=== PATIENT | male | born 1945 | race Caucasian/White ===

== ENCOUNTER 2019-05-11 15:45 | Observation (INO) ==
[2019-05-11 16:39] LABS: Basophils % 0.4 %; Eosinophils # 0.2 K/mcL (0.0-0.6); Eosinophils % 2.3 %; Hematocrit 37.7 % (37.5-50.1); Immature Granulocytes % 0.9 % (0-4); Lymphocytes # 0.5 K/mcL (0.6-4.6); Lymphocytes % 5.5 %; Mean Corpuscular HGB Conc 34.5 g/dL (31.6-35.5); Mean Corpuscular Hemoglobin 33.3 pg (28.0-33.3); Mean Corpuscular Volume 96.7 fL (83.0-100.0); Mean Platelet Volume 12.2 fL (9.4-12.4); Monocytes # 0.7 K/mcL (0.0-1.3); Neutrophils # 8.1 K/mcL (1.6-8.9); Platelet Count 146 K/mcL (140-400); Red Cell Distribution Width 13.4 % (11.5-14.5); Segmented Neutrophils % 83.9 %; White Blood Count 9.6 K/mcL (4.3-11.1)
[2019-05-11 18:02] LABS: Bilirubin,Urine Large (Negative); Blood,Urine Negative (Negative); Clarity,Urine Clear (Clear); Color,Urine Orange (Yellow); Glucose,Urine (UA) Normal (Normal); Ketones,Urine Trace mg/dL (Negative); Leukocyte Esterase,Urine Small (Negative); Nitrite,Urine Positive (Negative); PH,Urine 5.5 pH Units (5.0-8.0); Protein,Urine 30 mg/dL (Neg-Trace); Specific Gravity,Urine 1.029 (1.010-1.025); Urobilinogen,Urine >=8.0 mg/dL (Normal)
[2019-05-11 18:05] LABS: Alanine Aminotransferase 105 Units/L (7-52); Albumin 3.7 g/dL (3.5-5.7); Albumin/Globulin Ratio 1.3 (1.1-2.2); Alkaline Phosphatase 84 Units/L (34-104); Aspartate Amino Transferase 147 Units/L (13-39); BUN/Creatinine Ratio 27 (6-26); Bilirubin,Total 2.3 mg/dL (0.3-1.0); Blood Urea Nitrogen 32 mg/dL (8-23); Calcium 9.4 mg/dL (8.6-10.3); Carbon Dioxide 21 mEq/L (23-29); Chloride 99 mEq/L (98-107); Globulin 2.9 g/dL (2.4-3.5); Glucose 101 mg/dL (70-105); Osmolality,Calculated 285 (280-300); Potassium 4.4 mEq/L (3.5-5.1); Sodium 134 mEq/L (136-145); Total Protein 6.6 g/dL (6.4-8.9); Troponin I 0.03 ng/mL (< 0.04); eGFR For African Americans > 60 (> 60); eGFR For Non-African Americans 59 (> 60)
[2019-05-11 18:05] LABS: Bacteria,Urine None Seen per hpf (None-Few); Squamous Epithelial Cell,Urine Many per lpf (None-Few); WBC,Urine 15-30 per hpf (0-3)
[2019-05-11 18:11] LABS: Hyaline Casts,Urine Few per lpf (None-Few); RBC,Urine 0-3 per hpf (0-3)
[2019-05-11 18:15] LABS: Thyroid Stimulating Hormone 3.487 mcIU/mL (0.340-5.600)
[2019-05-11] MEDS ORDERED: Isovue-370 500 ML BOTTLE IVP ONE (18:38)
[2019-05-11] MEDS ORDERED: 0.9 % Sodium Chloride 500 ML IVC ONE (19:16)
[2019-05-11 19:34] LABS: Creatine Kinase 125 Units/L (30-223)
[2019-05-11] MEDS ORDERED: cefTRIAXone 1,000 MG in Water for inj. (sterile) 10 ML IVP ONE (20:44)
[2019-05-11] MEDS ORDERED: Naloxone 0.4 MG/ML INJ IVP PRN (22:03)
[2019-05-11] MEDS ORDERED: Nitroglycerin 0.4 MG TAB.SUBL SL PRN (22:05)
[2019-05-11] MEDS ORDERED: Ipratropium/Albuterol Neb 3 ML IH PRN (22:05)
[2019-05-12] MEDS ORDERED: Gadolinium Contrast Agent (WT Based) IV PRN (01:53)
[2019-05-12 05:28] LABS: Basophils % 0.5 %; Eosinophils # 0.3 K/mcL (0.0-0.6); Eosinophils % 3.1 %; Hemoglobin 12.2 g/dL (12.9-16.9); Immature Granulocytes % 1.2 % (0-4); Lymphocytes # 0.4 K/mcL (0.6-4.6); Lymphocytes % 5.2 %; Mean Corpuscular Hemoglobin 33.3 pg (28.0-33.3); Mean Corpuscular Volume 101.1 fL (83.0-100.0); Mean Platelet Volume 11.6 fL (9.4-12.4); Monocytes # 0.6 K/mcL (0.0-1.3); Monocytes % 7.2 %; Platelet Count 118 K/mcL (140-400); Red Blood Count 3.66 M/mcL (4.19-5.50); Red Cell Distribution Width 13.4 % (11.5-14.5); Segmented Neutrophils % 82.8 %; White Blood Count 8.5 K/mcL (4.3-11.1)
[2019-05-12 05:50] LABS: BUN/Creatinine Ratio 30 (6-26); Blood Urea Nitrogen 31 mg/dL (8-23); Carbon Dioxide 23 mEq/L (23-29); Chloride 100 mEq/L (98-107); Glucose 101 mg/dL (70-105); Osmolality,Calculated 289 (280-300); Potassium 4.3 mEq/L (3.5-5.1); Sodium 136 mEq/L (136-145); eGFR For African Americans > 60 (> 60); eGFR For Non-African Americans > 60 (> 60)
[2019-05-12] MEDS: *HR* Heparin 5,000 UNIT/ML VIAL SQ SCH ×2 (06:23→14:31)
[2019-05-12 06:37] LABS: Hepatitis B Surface Antigen Nonreactive (Nonreactive)
[2019-05-12 07:06] LABS: Hepatitis C Virus Antibody Nonreactive (Nonreactive)
[2019-05-12 07:07] LABS: Hepatitis B Core IgM Nonreactive (Nonreactive)
[2019-05-12 07:08] LABS: Hepatitis A Antibody IgM Nonreactive (Nonreactive)
[2019-05-12] MEDS: carvediloL 25 MG TABLET PO SCH ×2 (08:07→15:41)
[2019-05-12] MEDS: Spironolactone 25 MG TABLET PO SCH (08:07)
[2019-05-12] MEDS: Aspirin 81 MG TAB.CHEW PO SCH (09:31)
[2019-05-12 09:43] LABS: Alanine Aminotransferase 93 Units/L (7-52); Albumin 3.5 g/dL (3.5-5.7); Albumin/Globulin Ratio 1.3 (1.1-2.2); Alkaline Phosphatase 80 Units/L (34-104); Aspartate Amino Transferase 131 Units/L (13-39); Bilirubin,Direct 1.5 mg/dL (0.0-0.2); Bilirubin,Indirect 0.6 mg/dL (0.0-1.0); Bilirubin,Total 2.1 mg/dL (0.3-1.0); Globulin 2.6 g/dL (2.4-3.5); Total Protein 6.1 g/dL (6.4-8.9)
[2019-05-12] MEDS: Tiotropium 18 MCG inhalation IH SCH (10:44)
[2019-05-12] MEDS: Budesonide/Formoterol 160/4.5 1 PUFF INH IH SCH ×2 (10:44→20:16)
[2019-05-13] MEDS: *HR* Heparin 5,000 UNIT/ML VIAL SQ SCH ×4 (02:47→20:38)
[2019-05-13 05:24] LABS: Hematocrit 36.6 % (37.5-50.1); Hemoglobin 12.6 g/dL (12.9-16.9); Mean Corpuscular HGB Conc 34.4 g/dL (31.6-35.5); Mean Corpuscular Hemoglobin 33.5 pg (28.0-33.3); Mean Corpuscular Volume 97.3 fL (83.0-100.0); Mean Platelet Volume 11.8 fL (9.4-12.4); Platelet Count 128 K/mcL (140-400); Red Blood Count 3.76 M/mcL (4.19-5.50); Red Cell Distribution Width 13.6 % (11.5-14.5); White Blood Count 8.8 K/mcL (4.3-11.1)
[2019-05-13 05:44] LABS: Alanine Aminotransferase 103 Units/L (7-52); Albumin 3.5 g/dL (3.5-5.7); Albumin/Globulin Ratio 1.3 (1.1-2.2); Alkaline Phosphatase 86 Units/L (34-104); Aspartate Amino Transferase 163 Units/L (13-39); BUN/Creatinine Ratio 31 (6-26); Bilirubin,Total 2.4 mg/dL (0.3-1.0); Blood Urea Nitrogen 29 mg/dL (8-23); Calcium 9.2 mg/dL (8.6-10.3); Carbon Dioxide 25 mEq/L (23-29); Chloride 98 mEq/L (98-107); Globulin 2.6 g/dL (2.4-3.5); Glucose 97 mg/dL (70-105); Osmolality,Calculated 286 (280-300); Potassium 4.4 mEq/L (3.5-5.1); Sodium 135 mEq/L (136-145); Total Protein 6.1 g/dL (6.4-8.9); eGFR For African Americans > 60 (> 60); eGFR For Non-African Americans > 60 (> 60)
[2019-05-13] MEDS: Tiotropium 18 MCG inhalation IH SCH (07:16)
[2019-05-13] MEDS: Budesonide/Formoterol 160/4.5 1 PUFF INH IH SCH ×2 (07:16→22:40)
[2019-05-13] MEDS: Spironolactone 25 MG TABLET PO SCH (09:16)
[2019-05-13] MEDS: carvediloL 25 MG TABLET PO SCH ×2 (09:16→16:38)
[2019-05-13] MEDS: Aspirin 81 MG TAB.CHEW PO SCH (09:16)
[2019-05-13] MEDS ORDERED: Isovue-370 500 ML BOTTLE IVP ONE (13:07)
[2019-05-13] MEDS ORDERED: Gadolinium Contrast Agent (WT Based) IV PRN (15:48)
[2019-05-13] MEDS: levoFLOXacin 750 MG TABLET PO SCH (16:37)
[2019-05-13 16:57] LABS: % Iron Saturation 27 % (20-55); Iron 86 mcg/dL (65-175); Transferrin 224 mg/dL (203-362)
[2019-05-13 17:20] LABS: Folate 5.8 ng/mL (3.0-16.0)
[2019-05-13] MEDS ORDERED: Ipratropium/Albuterol Neb 3 ML IH SCH (18:00)
[2019-05-13] MEDS: Ipratropium/Albuterol Neb 3 ML IH SCH ×2 (19:43→22:40)
[2019-05-14] MEDS: Ipratropium/Albuterol Neb 3 ML IH SCH ×3 (03:38→16:03)
[2019-05-14] MEDS: *HR* Heparin 5,000 UNIT/ML VIAL SQ SCH ×2 (05:03→12:19)
[2019-05-14 06:30] LABS: Hematocrit 39.4 % (37.5-50.1); Hemoglobin 13.5 g/dL (12.9-16.9); Mean Corpuscular HGB Conc 34.3 g/dL (31.6-35.5); Mean Corpuscular Hemoglobin 33.4 pg (28.0-33.3); Mean Corpuscular Volume 97.5 fL (83.0-100.0); Mean Platelet Volume 12.2 fL (9.4-12.4); Platelet Count 130 K/mcL (140-400); Red Blood Count 4.04 M/mcL (4.19-5.50); Red Cell Distribution Width 13.7 % (11.5-14.5); White Blood Count 10.4 K/mcL (4.3-11.1)
[2019-05-14 06:50] LABS: Alanine Aminotransferase 107 Units/L (7-52); Albumin 3.6 g/dL (3.5-5.7); Albumin/Globulin Ratio 1.4 (1.1-2.2); Alkaline Phosphatase 92 Units/L (34-104); Aspartate Amino Transferase 169 Units/L (13-39); BUN/Creatinine Ratio 34 (6-26); Blood Urea Nitrogen 36 mg/dL (8-23); Calcium 9.5 mg/dL (8.6-10.3); Carbon Dioxide 21 mEq/L (23-29); Chloride 98 mEq/L (98-107); Globulin 2.6 g/dL (2.4-3.5); Glucose 100 mg/dL (70-105); Osmolality,Calculated 284 (280-300); Potassium 4.9 mEq/L (3.5-5.1); Sodium 133 mEq/L (136-145); Total Protein 6.2 g/dL (6.4-8.9); eGFR For African Americans > 60 (> 60); eGFR For Non-African Americans > 60 (> 60)
[2019-05-14] MEDS: carvediloL 25 MG TABLET PO SCH (07:41)
[2019-05-14] MEDS: Spironolactone 25 MG TABLET PO SCH (07:41)
[2019-05-14] MEDS: Aspirin 81 MG TAB.CHEW PO SCH (07:41)
[2019-05-14] MEDS ORDERED: Lidocaine -MPF 2% 2 ML VIAL ONE (08:44)
[2019-05-14] MEDS ORDERED: *HR* Propofol 200 MG/20 ML VIAL IVP ONE (08:44)
[2019-05-14] MEDS ORDERED: Lidocaine HCL 4 ML Topical Solution (Laryng-O-Jet Kit Sterile Pak) TP ONE (08:44)
[2019-05-14] MEDS ORDERED: Propofol 500 MG/50 ML INFUS..BTL ONE (08:44)
[2019-05-14] MEDS ORDERED: Ondansetron 4 MG/2 ML VIAL ONE (08:44)
[2019-05-14] MEDS ORDERED: Dexamethasone 4 MG/ML VIAL ONE (08:44)
[2019-05-14] MEDS ORDERED: *HR* Succinylcholine 200 MG/10 ML VIAL IVP ONE (08:44)
[2019-05-14] MEDS ORDERED: *HR* PHENYLEPHRINE 1,000 MCG/10 ML SYRINGE IVP ONE (10:30)
[2019-05-14] MEDS ORDERED: EPHEDrine 50 MG/ML VIAL ONE (10:34)
[2019-05-14] MEDS: Budesonide/Formoterol 160/4.5 1 PUFF INH IH SCH (10:46)
[2019-05-14] MEDS: Tiotropium 18 MCG inhalation IH SCH (10:46)
[2019-05-14] MEDS ORDERED: Albuterol 2.5 MG/3 ML NEBULIZER ONE (11:28)
[2019-05-14] MEDS ORDERED: Albuterol 2.5 MG/3 ML NEBULIZER IH ONE (11:30)
[2019-05-14] MEDS: levoFLOXacin 750 MG TABLET PO SCH (12:20)
[2019-05-14 13:50] VITALS: BP 99/57
[2019-05-14] MEDS ORDERED: *HR* OxyCODONE Immed Rel 5 MG TABLET PO PRN (14:18)
[2019-05-14 14:49] LABS: Appearance of Body Fluid Cloudy (Clear); Volume of Body Fluid 20 mL
== END 2019-05-14 16:04 | disposition home or self-care (01) ==
LOC: 3ANU 15:45 → EMEROOARM 15:45 → SUATTDRO 21:04 → 3ANU 21:58
PROVIDERS: ADMIT Student in an Organized Health Care Education/Training Program; ATTEND Family Medicine